=== PATIENT | male | born 1975 | race Caucasian/White ===

== ENCOUNTER 2018-01-20 18:02 | Emergency (ER) | payer MEDICAID ==
[~2018-01-20] VITALS: Ht 188 cm; Wt 97.5 kg
[~2018-01-20 18:02] MED LIST: CLON-527 PO; NAPR-56 PO; NO HOME MEDS
[2018-01-20 18:26] VITALS: BP 148/90
[2018-01-20] MEDS ORDERED: LIDOcaine 1.5% w/epinephrine 1:200,000 5ml ampul IJ ONE (19:35)
== END 2018-01-20 21:12 | disposition home or self-care (01) ==
LOC: ER 18:03
DX: S01.112A Laceration without foreign body of left eyelid and periocular area, initial encounter (principal); K05.6 Periodontal disease, unspecified; F15.90 Other stimulant use, unspecified, uncomplicated; Z56.0 Unemployment, unspecified; Z88.1 Allergy status to other antibiotic agents; Z79.899 Other long term (current) drug therapy; X58.XXXA Exposure to other specified factors, initial encounter; Y93.89 Activity, other specified; Y92.89 Other specified places as the place of occurrence of the external cause; Y99.8 Other external cause status; Z87.81 Personal history of (healed) traumatic fracture
CPT/HCPCS: 12013; 70450; 70486; 99284; J3490; A6449